=== PATIENT | female | born 1985 | race Caucasian/White ===

== ENCOUNTER 2017-05-28 07:24 | Observation (INO) | payer OTHER ==
[2017-05-28] MEDS ORDERED: LIDOCAINE 1% 300 MG/30 ML SDV ONE (07:35)
[2017-05-28] MEDS ORDERED: HEPARIN 10,000 UNIT/10 ML MDV ONE ×2 (07:36→10:20)
[2017-05-28] MEDS ORDERED: ISOPROTERENOL HCL 0.2 MG/ML 5ML AMP ONE (07:36)
[2017-05-28] MEDS ORDERED: BUPIVACAINE 0.5% 30 ML SDV ONE (07:36)
[2017-05-28] MEDS ORDERED: NS 1,000 ML IV ONE (07:49)
[2017-05-28] MEDS ORDERED: MIDAZOLAM 2 MG/2 ML VIAL IVP ONE (07:49)
[2017-05-28] MEDS ORDERED: ONDANSETRON DISINTEGRATING 4 MG TAB PO ONE (08:00)
[2017-05-28] MEDS ORDERED: OXYCODONE/APAP 5/325 TAB PO ONE (08:00)
--- NOTE | 2017-05-28 08:05 | CPEKG ---
Heart Rate: 71 RR Interval: 845 P-R Interval: 184 QRSD Interval: 90 QT Interval: 380 QTC Interval: 413 P Rosamond: 74 QRS Rosamond: 68 T Wave Rosamond: 48 EKG Severity - NORMAL ECG - EKG Impression: SINUS RHYTHM Electronically Signed By: Phong Sherman 28-May-2017 13:45:05
[2017-05-28 08:32] LABS: % IMMATURE GRANULYOCYTES 0.5 % (0.0-1.1); ABSOLUTE IMMATURE GRANULOCYTES 0.02 10^3/uL (0.00-0.10); ADD DIFF? NO; ADD MORPH? NO; ADD SCAN? YES; ATYPICAL LYMPHOCYTE FLAG 0 (0-99); FRAGMENT RBC FLAG 0 (0-99); HEMATOCRIT 40.3 % (38.0-47.0); HEMOGLOBIN 14.5 g/dL (12.6-16.3); LEFT SHIFT FLG 70 (0-99); LIPEMIA HEMOLYSIS FLAG 90 (0-99); MEAN CELL HEMOGLOBIN 30.9 pg (27.9-34.1); MEAN CELL VOLUME 85.9 fL (81.5-99.8); MEAN PLATELET VOLUME 11.2 fL (8.7-11.7); PLATELET CLUMPS FLAG 0 (0-99); PLATELET COUNT 126 10^3/uL (150-400); RED BLOOD CELL COUNT 4.69 10^6/uL (4.18-5.33)
[2017-05-28 08:41] LABS: INR 1.12 (0.83-1.16); PROTIME(PATIENT) 14.3 SEC (12.0-15.0)
[2017-05-28 08:42] LABS: APTT 26.5 SEC (23.0-38.0)
[2017-05-28 08:45] LABS: ANION GAP 11 mEq/L (8-16); CALCIUM 9.5 mg/dL (8.5-10.4); CARBON DIOXIDE 18 mEq/l (22-31); CHLORIDE 110 mEq/L (97-110); CREATININE 0.9 mg/dL (0.6-1.0); GLOMERULAR FILTRATION RATE > 60; GLUCOSE 102 mg/dL (70-100); MAGNESIUM 1.7 mg/dL (1.6-2.3); POTASSIUM 3.8 mEq/L (3.5-5.2); SODIUM 139 mEq/L (134-144)
[2017-05-28] MEDS ORDERED: ROCURONIUM 100 MG/10 ML VIAL ONE (09:06)
[2017-05-28] MEDS ORDERED: fentaNYL 100 MCG/2 ML INJ ONE ×3 (09:06→11:25)
[2017-05-28] MEDS ORDERED: PROPOFOL 200 MG/20 ML VIAL ONE ×2 (09:06→09:32)
[2017-05-28] MEDS ORDERED: MIDAZOLAM 2 MG/2 ML VIAL ONE (09:12)
[2017-05-28] MEDS ORDERED: PROPOFOL/EMULSION 500 MG/50 ML BOTTLE IV ONE (09:32)
[2017-05-28 09:57] LABS: SCAN POSITIVE
[2017-05-28] MEDS ORDERED: HEPARIN/DEXTROSE 25,000 UNIT/500 ML BAG ONE (10:16)
[2017-05-28] MEDS ORDERED: IOPAMIDOL (ISOVUE-300) 100 ML BTL ONE (10:18)
[2017-05-28] MEDS ORDERED: ROCURONIUM 50 MG/5 ML VIAL ONE ×2 (10:27)
[2017-05-28] MEDS ORDERED: DEXAMETHASONE 4 MG/ML VIAL ONE (10:33)
[2017-05-28 10:42] LABS: PLATELET ESTIMATE ADEQUATE (ADEQ)
[2017-05-28] MEDS ORDERED: SUGAMMADEX SODIUM 200 MG/2 ML VIAL IVP ONE ×2 (12:14→12:17)
[2017-05-28] MEDS ORDERED: PROTAMINE SULFATE 50 MG/5 ML VIAL IVP ONE (12:19)
[2017-05-28] MEDS ORDERED: OXYCODONE/APAP 5/325 TAB PO PRN (12:28)
[2017-05-28] MEDS ORDERED: ACETAMINOPHEN 325 MG TAB PO PRN (12:28)
[2017-05-28] MEDS ORDERED: PROMETHAZINE HCL 25 MG/ML INJ ONE (12:37)
[2017-05-28] MEDS ORDERED: FAMOTIDINE 20 MG/NACL/50 ML BAG IV ONE (12:50)
[2017-05-28] MEDS ORDERED: FAMOTIDINE 20 MG/NACL 50 ML IV ONE (13:00)
[2017-05-28] MEDS ORDERED: ATROPINE SULFATE 1 MG/10 ML SYR ONE (13:04)
[2017-05-28 13:48] LABS: ANION GAP 9 mEq/L (8-16); CALCIUM 8.6 mg/dL (8.5-10.4); CARBON DIOXIDE 19 mEq/l (22-31); CHLORIDE 111 mEq/L (97-110); CREATININE 0.9 mg/dL (0.6-1.0); GLOMERULAR FILTRATION RATE > 60; GLUCOSE 117 mg/dL (70-100); MAGNESIUM 1.7 mg/dL (1.6-2.3); POTASSIUM 4.1 mEq/L (3.5-5.2); SODIUM 139 mEq/L (134-144)
[2017-05-28] MEDS ORDERED: KETOROLAC 15 MG/1 ML SDV IVP ONE (14:30)
--- NOTE | 2017-05-28 14:48 | CPEKG ---
Heart Rate: 68 RR Interval: 882 P-R Interval: 176 QRSD Interval: 90 QT Interval: 404 QTC Interval: 430 P Hawthorne: 67 QRS Hawthorne: 58 T Wave Hawthorne: 42 EKG Severity - NORMAL ECG - EKG Impression: SINUS RHYTHM Electronically Signed By: Markel Vazquez 28-May-2017 16:39:58
[2017-05-28] MEDS: OXYCODONE/APAP 5/325 TAB PO PRN ×2 (17:36→23:39)
[2017-05-28] MEDS: ONDANSETRON 4 MG/2 ML VIAL IVP PRN ×2 (17:40→19:43)
--- NOTE | 2017-05-28 18:39 | EPPROC ---
Electrophysiology Procedure Note: ELECTROPHYSIOLOGIC STUDY AND CATHETER MEDIATED ABLATION OF LEFT POSTERIOR ACCESSORY PATHWAY AND NONSUSTAINED AVNRT Procedures performed: 99003-73 EP evaluation with RA/RV/LA pace/record, with arrhythmia induction 52805-30 EP evaluation with RA/RV pace record, insert/reposition catheter, with arrhythmia induction 38052 Intracardiac catheter ablation, SVT arrhythmogenic focus 61120 3D mapping Fluoroscopy Second arrhythmia 08917 Intracardiac echocardiogram 46810-07 Transseptal puncture INDICATION: SVT symptoms Prior ablation for 2 separate APs at our institution in 2015 PROCEDURE: Catheters and anesthesia: The patient arrived in the Electrophysiology Laboratory in the fasting state. The right clavicular region, right groin, and left groin area were prepped and draped in the usual sterile manner. Anesthesiologist administered general anesthesia. Appropriate non-invasive blood pressure, pulse oximetry and end- tidal CO2 monitoring was established. All catheters were placed percutaneously using the modified Seldinger technique , and advanced into position under fluoroscopic guidance. One #6 [place] hexapolar non-deflectable electrode catheter was inserted into the right atrial appendage via the left femoral vein (2mm spacing; except the proximal ring which was 25cm from the tip used for unipolar recordings). One #7 [place] deflectable octapolar electrode catheter was advanced to the His-bundle position via the left femoral vein (2mm spacing). One #7 [place] deflectable quadrapolar catheter was advanced to the anteroseptal right ventricle via the left femoral vein. One #7 [place] deflectable catheter with 10 pairs of electrodes was placed via the right femoral vein into the coronary sinus. Programmed stimulation of the right atrium, right ventricle and coronary sinus ( left atrium) was performed. Parahisian pacing demonstrated two patterns of retrograde atrial activation during His bundle capture and loss of His bundle capture. This demonstrated the presence of an accessory pathway ( 0500 oclock at the mitral annulus as seen in the SAMOAN view). 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 Ventricular extrastimuli delivered during tachycardia during His bundle refractoriness advanced the next atrial activation with the same retrograde atrial activation sequence proving the tachycardia to be orthodromic AV reentrant tachycardia. In preparation for ablation of the left posterior accessory pathway a transeptal puncture was performed under fluoroscopic and hemodynamic guidance. Intracardiac echocardiography was used during the procedure. Mean left atrial pressure was 12 mm Hg mmHg. A SL1 sheath was inserted into the left atrium. The patient was administered IV heparin bolus and IV heparin continuous infusion prior to the transseptal puncture and the activated clotting time was maintained ~ 300 seconds during the remainder of the procedure. One #7 [place]ian mapping catheter with a 4 mm tip electrode and a sensor for the [id number] mapping system was inserted into the SL1 sheath and advanced to the left atrium. Mapping was perfomed during ventricular pacing and SVT. Ablation was performed during V pacing. A sharp retrograde accessory pathway potential was recorded at 0500 oclock at the mitral annulus as seen in the SAMOAN view. This preceded the earliest atrial activation by 10 ms. RF#1 was delivered to this site. RF#1 blocked conduction in the accessory pathway after 6 seconds of initiation of ablation. Additional RF 2-4 were delivered slightly anterior and posterior to RF1 site. Programmed stimulation from the RA, CS, right and leftventricle during the baseline state post ablation and during infusion of isoproterenol 2 and 4 mcg/ min confirmed that there was no conduction over the left posterolateral accessory pathway and no orthodromic AVRT could be induced. Nonsustained AVNRT was induced 2:1 conduction and 1:1 conduction were seen. RF applications were delivered to the slow AV betsy pathway, continuous junctional rhythm occurred and after ablation, AVNRT was noninducible. The catheters were removed. Long sheath was exchanged for short sheath. Protamine was administered. The patient was transferred to the cardiovascular holding area in stable condition. Vascular access sheaths were removed in the holding area. There were no apparent complications. Results: A. Spontaneous Intervals: Pre ablation SCL 670 ms AH 80 ms HV 40 ms Post ablation SCL 630 ms AH 75 ms HV 40 ms B. Antegrade AV betsy function (decremental pacing) Pre ablation FPERP 300 ms SPERP 290 ms WBB CL 280 ms Post ablation FPERP _290_ ms WBB CL 280 ms C. Retrograde AV betsy function (decremental pacing) D. Accessory pathway function 1. A single AV accessory pathway was identified at the mitral annulus at 0500 oclock as seen in the SAMOAN view. 2. The AV accessory pathway conducted in the retrograde directions. During ventricular pacing 1:1 conduction over the accessory pathway was maintained to a cycle length of 300 ms, block over the AP occurred at 290 ms. E. Arrhythmias: Orthodromic AVRT CL 330 ms AH 120 ms HV 40 ms VA 170 ms, shortest VA posterior mitral annulus 120 ms. Nonsustained AVNRT, occasionally conducting 2:1 to ventricles, longest episode 15 seconds. CL 300 ms. CONCLUSIONS: 1. A single left posterior accessory pathway, which exhibited conduction in the retrograde direction. 2. 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 3. Successful ablation of the left posterior accessory pathway with elimination of AV reentrant tachycardia. 4. Nonsustained AVNRT, successful ablation. 5. No apparent complications. Patient Problems: Problems Problem Status Onset Supraventricular tachycardia Acute Cervical strain, acute Acute
[2017-05-28 19:44] VITALS: RESP 18
[2017-05-28] MEDS: FAMOTIDINE 20 MG TAB PO SCH (20:36)
[2017-05-28] MEDS: PANTOPRAZOLE SODIUM 40 MG TAB PO SCH (20:36)
[2017-05-28] MEDS: DILTIAZEM 60 MG TAB PO SCH (20:36)
[2017-05-28] MEDS ORDERED: SENNOSIDES 1 TAB PO SCH (21:00)
[2017-05-28] MEDS ORDERED: SENNOSIDES PO SCH (21:00)
[2017-05-29 04:16] VITALS: BP 120/88; PULSE 78; TEMP 98.1; O2SAT 94
[2017-05-29 04:26] LABS: % IMMATURE GRANULYOCYTES 0.2 % (0.0-1.1); ABSOLUTE IMMATURE GRANULOCYTES 0.01 10^3/uL (0.00-0.10); ADD DIFF? NO; ADD MORPH? NO; ADD SCAN? NO; ATYPICAL LYMPHOCYTE FLAG 0 (0-99); FRAGMENT RBC FLAG 0 (0-99); HEMATOCRIT 38.2 % (38.0-47.0); HEMOGLOBIN 13.5 g/dL (12.6-16.3); LEFT SHIFT FLG 20 (0-99); LIPEMIA HEMOLYSIS FLAG 90 (0-99); MEAN CELL HEMOGLOBIN 30.8 pg (27.9-34.1); MEAN CELL HEMOGLOBIN CONCENTR. 35.3 g/dL (32.4-36.7); MEAN CELL VOLUME 87.2 fL (81.5-99.8); MEAN PLATELET VOLUME 11.6 fL (8.7-11.7); PLATELET CLUMPS FLAG 10 (0-99); PLATELET COUNT 126 10^3/uL (150-400); RED BLOOD CELL COUNT 4.38 10^6/uL (4.18-5.33)
[2017-05-29 04:34] LABS: INR 1.09 (0.83-1.16)
[2017-05-29 04:43] LABS: ANION GAP 13 mEq/L (8-16); CALCIUM 9.6 mg/dL (8.5-10.4); CARBON DIOXIDE 19 mEq/l (22-31); CHLORIDE 111 mEq/L (97-110); CREATININE 0.9 mg/dL (0.6-1.0); GLOMERULAR FILTRATION RATE > 60; GLUCOSE 84 mg/dL (70-100); POTASSIUM 3.7 mEq/L (3.5-5.2); SODIUM 143 mEq/L (134-144)
[2017-05-29 04:51] LABS: CREATINE KINASE-MB FRACTION 0.81 ng/mL (0-3.19); TROPONIN I 0.229 ng/mL (0-0.034)
[2017-05-29] MEDS: PANTOPRAZOLE SODIUM 40 MG TAB PO SCH (08:07)
[2017-05-29] MEDS: FAMOTIDINE 20 MG TAB PO SCH (08:07)
[2017-05-29] MEDS: DILTIAZEM 60 MG TAB PO SCH (08:07)
[2017-05-29] MEDS: OXYCODONE/APAP 5/325 TAB PO PRN (08:08)
[2017-05-29] MEDS: ONDANSETRON 4 MG/2 ML VIAL IVP PRN (08:14)
[2017-05-29] MEDS ORDERED: HYDROCHLOROTHIAZIDE 50 MG TAB PO SCH (09:00)
[2017-05-29] MEDS ORDERED: HYDROCHLOROTHIAZIDE 25 MG TAB PO SCH (09:00)
--- NOTE | 2017-05-29 09:04 | CPEKG ---
Heart Rate: 67 RR Interval: 896 P-R Interval: 168 QRSD Interval: 94 QT Interval: 412 QTC Interval: 435 P Devine: 68 QRS Devine: 61 T Wave Devine: 37 EKG Severity - NORMAL ECG - EKG Impression: SINUS RHYTHM Electronically Signed By: Markel Vazquez 29-May-2017 16:07:48
--- NOTE | 2017-05-29 09:35 | ECHO ---
[id number] + + [address] : : [place] [address] : : [phone] + + Adult Echocardiographic Report + --------+ :Name: KELLY VO EStudy Date: 05/29/2017 08:25 AM : : Hospital Admission Number: [id number] Locat ion: 222: :: 1985 Gender: Female Height: 65 in : :Age: 31 yrs Race: WH Weight: 194 l b : :Reason For Study: F/U post EP study : : BSA: 2.0 mete rs2 : + --------+ MMode/2D Measurements \T\ Calculations IVSd: 0.92 cm LVIDd: 4.6 cm FS: 39.8 % Ao root diam: LVPWd: 0.73 cm LVIDs: 2.8 cm EDV(Teich): 3.0 cm 96.4 ml LA dimension: ESV(Teich): 3.4 cm 28.5 ml EF(Teich): 70.4 % LVLd ap4: 8.3 cm SV(MOD-sp4): EDV(MOD-sp4): 37.0 ml 56.0 ml LVLs ap4: 6.9 cm ESV(MOD-sp4): 19.0 ml EF(MOD-sp4): 66.1 % Normal Measurement Values: + + :LVIDd (3.5-5.7cm) IVSd (0.6-1.1cm) LVPWd (0.6-1.1cm) Aortic Root (2.0-3.7cm)Left Atrium (1.5-4.0cm): :LV Vol(d) (76-115ml) LV Vol(s) (29-48ml) Ejec Fraction (50-65%)PV Donn (0.6- 1.2m/s) TV Donn (0.4-1.0m/s) : :MV E Donn (0.8-1.0m/s)MV A Donn (0.3-1.0m/s)LVOT Donn (0.7-1.2m/s) Asc Ao Donn ( 0.9-1.8m/s) : + + Doppler Measurements \T\ Calculations MV E max donn: 97.7 cm/sec Ao mean P.2 mmHg MV A max donn: 50.3 cm/sec Ao V2 mean: 96.6 cm/sec MV E/A: 1.9 Ao V2 VTI: 28.6 cm Left Ventricle The left ventricle is normal in size. There is normal left ventricular wall thickness. Left ventricular systolic function is normal. Ejection Fraction = 65-70%. The left ventricular ejection fraction is calculated at 70.4 %. No regional wall motion abnormalities noted. Right Ventricle The right ventricle is normal in size and function. Atria The left atrial size is normal. Right atrial size is normal. Mitral Valve The mitral valve is normal in structure and function. There is trace mitral regurgitation. Tricuspid Valve Normal tricuspid valve. There is trace tricuspid regurgitation. Aortic Valve The aortic valve opens well. The aortic valve is trileaflet. There is no aortic stenosis. There is no aortic insufficiency. Pulmonic Valve The pulmonic valve is not well visualized. There is no pulmonic valvular regurgitation. Great Vessels The aortic root is normal size. Pericardium/Pleural There is no pericardial effusion. Conclusion A complete two-dimensional transthoracic echocardiogram was performed (2D, M-mode, Doppler and color flow Doppler). (1) Left ventricular systolic ejection fraction was normal (65-70%) - normal wall motion (2) No left ventricular hypertrophy (3) Diastolic function was normal (4) Normal right ventricular size and function (5) Normal atrial dimensions (6) Physiologic mitral regurgitation (7) Trileaflet aortic valve without sclerosis or insufficiency (8) Physiologic tricuspid regurgitation (9) Poor visualization of the pulmonic valve (10) No pericardial effusion (11) In comparison to prior echocardiogram from 01-31-16, no changes have been noted Final Reading Physician: Wilber Sexton signed on 05/29/2017 09:33 AM Ordering Physician: Phong Sherman Performed By: Charmaine Chauhan, HIENCS
--- NOTE | 2017-05-29 15:39 | GDS ---
[f rep st] DISCHARGE SUMMARY DISCHARGE DIAGNOSIS: Supraventricular tachycardia, status post ablation. BRIEF HISTORY: This is a 31-year-old woman with a history of prior ablation of a left posterior lat eral accessary pathway on January 30, 2016. She had done very well for 11 months without any symptoms until this past December. She then started experiencing episodes of heart rates between 130 and the n episodes up to 200 beats a minute, which she had recorded on her pulse oximeter. HOSPITAL COURSE: Dr. Sherman did a successful ablation of a left posterior accessary pathway with [place] of AV reentry tachycardia. There was a nonsustained AVNRT that was inducible, and this was a lso ablated. Patient did okay overnight with stable vital signs. She did experience palpitations a nd shelter monitor showed sinus rhythm with PACs, some PVCs, as well as short runs of ST versus AT up to 120 beats per minute. These did occur infrequently. She had no chest pain, shortness of dylan ath, pain in her groin site, or in her legs. TESTING DONE: Echocardiogram: Ejection fraction is 65% to 70% without wall motion abnormalities an d no pericardial effusion. Echo is unchanged from last year. EKG demonstrates sinus rhythm at 67 b eats per minute and no evidence of accessory pathway. LABORATORY WORK: WBC is 5.43, hemoglobin 13.5, hematocrit 38.2, platelets 126. PT 14, INR is 1.09. Sodium 143, potassium 3.7, chloride 111, bicarb 19, BUN 8, creatinine 0.9, glucose 84. CK is 86, CK-MB is 0.81. Troponin is 0.229, which is elevated and to be expected post ablation. PHYSICAL EXAMINATION: VITAL SIGNS: Blood pressure is 120/88, pulse is 78, respirations 18, tempera ture is 36.7, O2 saturation is 94% on room air. GENERAL: She is alert and oriented, sitting up in bed, in no acute distress. CARDIAC: Regular rate and rhythm without murmur, rub, or gallop. LUNGS : Clear to auscultation. ABDOMEN: Soft and nontender. Groin sites are without bleeding or hemato ma. No bruits appreciated. EXTREMITIES: Warm. No discoloration. Bilateral +2 pedal pulses. She does have a bandage on her right ankle. DISCHARGE MEDICATIONS: Please see discharge med rec. Of note, immediate release Cardizem was stopp ed and changed to Cardizem CD 120 mg to treat her short ST versus AT. This may be increased in foll owup. She will take aspirin 81 mg for 6 weeks post ablation and continue the rest of her home medic ations. DISCHARGE INSTRUCTIONS: Activity restrictions post ablation were reviewed with her and her , and she was given written instructions, as well. FOLLOWUP: She has an appointment with Dr. Sherman on July 03 at 2 p.m. /[id number]/MODL
[2017-05-30] MEDS ORDERED: DILTIAZEM CD 120 MG CAP PO SCH (09:00)
[2017-05-30] MEDS ORDERED: ASPIRIN 81 MG CHEWABLE TAB PO SCH (09:00)
== END 2017-05-29 10:45 | disposition home or self-care (01) ==
LOC: FSGY 07:24 → F2W 12:29
PROVIDERS: ADMIT Internal Medicine Cardiovascular Disease; ATTEND Internal Medicine Cardiovascular Disease
PROC: B245YZZ Ultrasonography of Left Heart using Other Contrast (ICD-10-PCS; principal; 2017-05-28)
PROC: 5A1213Z Performance of Cardiac Pacing, Intermittent (ICD-10-PCS; principal; 2017-05-28)
PROC: 025K3ZZ Destruction of Right Ventricle, Percutaneous Approach (ICD-10-PCS; principal; 2017-05-28)
PROC: 4A023FZ Measurement of Cardiac Rhythm, Percutaneous Approach (ICD-10-PCS; principal; 2017-05-28)
PROC: 02563ZZ Destruction of Right Atrium, Percutaneous Approach (ICD-10-PCS; principal; 2017-05-28)
PROC: 02K83ZZ Map Conduction Mechanism, Percutaneous Approach (ICD-10-PCS; principal; 2017-05-28)
PROC: 02573ZZ Destruction of Left Atrium, Percutaneous Approach (ICD-10-PCS; principal; 2017-05-28)
DX: I47.1 Supraventricular tachycardia (principal)
CPT/HCPCS: 93005; 93306; 93613; 93621; 93623; 93653; 93655; 93662; C1730; C1731; C1732; G0378; C1893; J0461; J1100; J1644; J1885; J2250; J2405; J2550; J2704; J2720; J3010; Q9967